=== PATIENT | male | born 1965 | race African-American/Black ===

== ENCOUNTER 2016-06-19 09:50 | Emergency (ER) | payer OTHER ==
[2016-06-19 10:01] VITALS: BMI 38.2
[2016-06-19] MEDS ORDERED: IBUPROFEN 400 MG TABLET (FP) PO ONE (10:19)
[2016-06-19] MEDS ORDERED: IBUPROFEN 400 MG TABLET (FP) PO PRN (10:19)
[2016-06-19] MEDS ORDERED: ALBUTEROL SO4 2.5/IPRATROPIUM 0.5 INH SOL 3 ML VIAL.NEB. NEB ONE ×2 (10:29→10:30)
--- NOTE | 2016-06-19 10:29 | PDOC ---
History of Present Illness - General Chief Complaint: Respiratory Stated Complaint: COUGH Time Seen by Provider: 06/19/16 09:53 - History of Present Illness Initial Comments: 06/19/16 10:29 This is a 50-year-old male with a history of vertigo, chronic back problems, bipolar disorder, mild intermittent asthma who presents emergency department with chest tightness and a dry cough. Patient symptoms have been present for the past 3 days. He was noted by his yesterday to be febrile despite DayQuil and NyQuil. No recent travel clerk was his ill contact PMH: Asthma, Veritgo, Chronic back problems PSH: denies Meds: Albuterol, Fluoxetine, Seroquel ALL: PCN --> anaphylaxis Social: (+) tobacco use (3 cigarettes/day, discontinued over the past 3 days) GENERAL/CONSTITUTIONAL: Yes: fever, chills, weakness, loss of appetite. HEAD, EYES, EARS, NOSE AND THROAT: No: change in vision, ear pain, discharge, sore throat, throat swelling. CARDIOVASCULAR: No: chest pain, lightheadedness, palpitations, syncope RESPIRATORY: Yes: cough, wheezing No: shortness of breath, hemoptysis, stridor. GASTROINTESTINAL: No: nausea, vomiting, diarrhea, abdominal cramping, rectal bleeding, constipation. GENITOURINARY: No: dysuria, hematuria, frequency, urgency, flank pain. MUSCULOSKELETAL: No: back pain, neck pain, joint pain, muscle swelling or pain SKIN: No: lesions, pallor, rash or easy bruising. NEUROLOGIC: No: headache, vertigo, paresthesias, weakness ENDOCRINE: No: unexplained weight gain or loss HEMATOLOGIC/LYMPHATIC: No: anemia, easy bleeding, swelling nodes. GENERAL: The patient is in no acute distress. HEAD: Normal with no signs of trauma. EYES: PERRLA, EOMI, sclera anicteric, conjunctiva clear. ENT: Ears normal, nares patent, oropharynx clear without exudates. Moist mucous membranes. NECK: Normal range of motion, supple without lymphadenopathy, JVD, or masses. LUNGS: (+) wheezing anteriorly, otherwise Breath sounds equal, no stridor HEART:Regular rate and rhythm, normal S1 and S2 without murmur, rub or gallop. ABDOMEN: Soft, nontender, normoactive bowel sounds. No guarding, no rebound. No masses palpable. EXTREMITIES: Normal range of motion, no edema. No clubbing or cyanosis. No erythema, or tenderness. NEUROLOGICAL: Cranial nerves II through XII grossly intact. Normal speech. No focal neurological deficits. MUSCULOSKELETAL: Back non-tender to palpation, no CVA tenderness SKIN: Warm, Dry, normal turgor, no rashes or lesions noted. Past History - Past Medical History Allergies/Adverse Reactions: Allergies Allergy/AdvReac Type Severity Reaction Status Date / Time Penicillins Allergy Verified 02/20/15 20:53 Home Medications: Ambulatory Orders Albuterol 0.083% Nebulizer Alida [Ventolin 0.083% Nebulizer Soln -] 1 neb NEB Q6H PRN #30 vial 06/19/16 Albuterol 0.083% Nebulizer Alida [Ventolin 0.083%] 1 neb NEB QID PRN 06/19/16 Azithromycin [Zithromax 250mg Tablets -] 250 mg PO UTDICT #6 tab 06/19/16 Fluoxetine HCl 20 mg PO DAILY 06/19/16 Meclizine HCl 25 mg PO BID PRN #30 tab.chew 06/19/16 Quetiapine Fumarate [Seroquel -] 50 mg PO AM 06/19/16 Quetiapine Fumarate [Seroquel -] 150 mg PO HS 06/19/16 Asthma: Yes Psychiatric Problems: Yes (BIPOLAR, DEPRESSION, ANXIETY) Suicide Attempt (Hx): Yes (X 1 - 20 YRS. AGO) Seizures: No - Psycho/Social/Smoking Cessation Hx Anxiety: No Suicidal Ideation: No Smoking History: Former smoker Have you smoked in the past 12 months: Yes Number of Cigarettes Smoked Daily: 5 Information on smoking cessation initiated: Yes 'Breaking Loose' booklet given: 06/19/16 Hx Alcohol Use: No Substance Use Type: Cocaine Hx Substance Use Treatment: Yes *Physical Exam - Vital Signs Last Vital Signs Temp Pulse Resp BP Pulse Ox 102.2 F H 80 16 126/84 96 06/19/16 09:50 06/19/16 09:50 06/19/16 09:50 06/19/16 09:50 06/19/16 09:50 ED Treatment Course - LABORATORY CBC & Chemistry Diagram: 06/19/16 10:40 06/19/16 10:40 Medical Decision Making - Medical Decision Making 06/19/16 10:33 Pt febrile and has a cough SIRS criteria = 1 Will do labs, blood cultures Will do CXR Will give nebs Will do Levaquin or Azithromycin pending results Will do flu swab 06/19/16 10:33 06/19/16 13:26 Laboratory Tests 06/19/16 06/19/16 10:40 10:40 WBC 9.0 Hgb 16.5 Hct 50.6 H Plt Count 259 Neutrophils % 70.9 Lymphocytes % 16.8 Sodium 134 L Potassium 3.7 Chloride 98 Carbon Dioxide 28 BUN 13 Creatinine 1.4 H Random Glucose 106 AST 63 H ALT 71 H Influenza negative Pt states he feels a bit better (after getting NS and Antipyretics) Pt LFTs elevated Unclear if this is due to his use of Percocet + DayQuil and NyQuil 06/19/16 13:26 Call placed to lab Tylenol level < 10 Will discharge to home Follow up withe PMD within 2-3 days Will discharge on Azithromycin (no leukocytosis, no infiltrate on CXR), possible bronchitis Clinical Impression: Cough, fevers 06/19/16 13:29 06/19/16 13:29 06/19/16 13:29 *DC/Admit/Observation/Transfer Diagnosis at time of Disposition: Cough, Transaminitis - Discharge Dispostion Disposition: HOME Condition at time of disposition: Stable Admit: No - Prescriptions Prescriptions: Meclizine HCl 25 mg PO BID PRN #30 tab.chew PRN Reason: Vertigo Albuterol 0.083% Nebulizer Alida [Ventolin 0.083% Nebulizer Soln -] 1 neb NEB Q6H PRN #30 vial PRN Reason: Wheezing Azithromycin [Zithromax 250mg Tablets -] 250 mg PO UTDICT #6 tab - Referrals Referrals: Ziggy Goff MD [Primary Care Provider] - - Patient Instructions Printed Discharge Instructions: DI for Acute Bronchitis Additional Instructions: Kathy Thank you for coming in to the ER today Please review your results Please follow up with your Primary Care physician Please review your results from today with Dr Goff Return to the ER for persistent or worsening fevers, chills, cough
[2016-06-19 11:09] LABS: BASOPHIL 2.6 % (0-2.0); EOSINOPHIL 0.9 % (0-4.5); MCH 30.1 pg (25.7-33.7); MCHC 32.5 g/dl (32.0-35.9); MEAN CELL VOLUME 92.7 fl (80-96); MEAN PLT VOLUME 7.8 fl (7.5-11.1); NEUTROPHILS 70.9 % (42.8-82.8); PLATELET COUNT 259 K/MM3 (134-434); RDW 13.5 % (11.9-15.9)
[2016-06-19 11:16] LABS: ALBUMIN 4.1 g/dl (3.5-5.0); BILIRUBIN,TOTAL 0.7 mg/dl (0.2-1.0); CALCIUM 9.2 mg/dl (8.4-10.2); CREATININE 1.4 mg/dl (0.6-1.3); TOT PROT 8.7 g/dl (6.4-8.3)
[2016-06-19] MEDS ORDERED: SODIUM CHLORIDE 1,000 ML IV ONE ×2 (11:39→13:38)
[2016-06-19 13:47] VITALS: BP 121/58; PULSE 89; TEMP 98.2
== END 2016-06-19 13:40 | disposition home or self-care (01) ==
LOC: FER 09:50
PROC: 3E0337Z Introduction of Electrolytic and Water Balance Substance into Peripheral Vein, Percutaneous Approach (ICD-10-PCS; principal; 2016-06-19)
PROC: 3E0F7GC Introduction of Other Therapeutic Substance into Respiratory Tract, Via Natural or Artificial Opening (ICD-10-PCS; 2016-06-19)
DX: J20.9 Acute bronchitis, unspecified (principal); R74.0 Nonspecific elevation of levels of transaminase and lactic acid dehydrogenase [LDH]; J45.21 Mild intermittent asthma with (acute) exacerbation; F31.9 Bipolar disorder, unspecified
CPT/HCPCS: 36415; 71020-TC; 80053; 80307; 85025; 87040; 87804; 94640; 96360; 96361; 99284-25

== ENCOUNTER 2020-02-26 14:11 | Inpatient (IN) | payer OTHER ==
--- NOTE | 2020-02-26 14:24 | BHS.RME ---
Substance Use & Tx History - Substance Use History Alcohol Substance amount: one pint to 1/5 tequilla, 2 beers Frequency of use: More than 3 times per week Substance route: Oral Cocaine-Crack Substance amount: 1/8 gram Frequency of use: Daily Substance route: Smoking Date of Last Use: 02/25/20 Nicotine Substance amount: 5 cigs to one half pack Frequency of use: Daily Substance route: Smoking Date of Last Use: 02/26/20 Marijuana/Hashish Substance amount: one bag Frequency of use: Less than 3 times per week Substance route: Smoking Date of Last Use: 02/25/20 - Last Treatment Date of last treatment: many years ago at [facility] Physical/Psych/Mental Status - Behavior General Behavior: Increased activity (restlessness, agitation) Eye Contact: Normal - Cooperativeness Cooperativeness: Cooperative - Thinking Thought Processes: Tight Thought content: Future oriented - Physical Health Problems Is patient presently having any pain?: Yes (chronic left shoulder, low back pain) Does patient presently have any injuries (include location): No Does patient currently have a fever: No CIWA Nausea/Vomitin-No Nausea/No Vomiting Muscle Tremors: None Anxiety: 0-No Anxiety, at Ease Agitation: 0-Normal Activity Paroxysmal Sweats: 3 Orientation: 0-Oriented Tacttile Disturbances: 0-None Auditory Disturbances: 0-None Visual Disturbances: 0-None Headache: 0-None Present CIWA-Ar Total Score: 3
[2020-02-26 14:47] VITALS: BMI 36.8
--- NOTE | 2020-02-26 17:11 | HP ---
CIWA Score Nausea/Vomitin-No Nausea/No Vomiting Muscle Tremors: None Anxiety: 0-No Anxiety, at Ease Agitation: 4-Moderately Restless (irritable due to not taking psych meds) Paroxysmal Sweats: 3 Orientation: 0-Oriented Tacttile Disturbances: 0-None Auditory Disturbances: 0-None Visual Disturbances: 0-None Headache: 0-None Present CIWA-Ar Total Score: 7 - Admission Criteria OASAS Guidelines: Admission for Medically Managed Detox: Requires at least one of the followin. CIWA greater than 12 2. Seizures within the past 24 hours 3. Delirium tremens within the past 24 hours 4. Hallucinations within the past 24 hours 5. Acute intervention needed for co occurring medical disorder 6. Acute intervention needed for co occurring psychiatric disorder 7. Severe withdrawal that cannot be handled at a lower level of care (continued vomiting, continued diarrhea, abnormal vital signs) requiring intravenous medication and/or fluids 8. Admitting History and Physical - Smoking History Smoking history: Former smoker Have you smoked in the past 12 months: Yes Aproximately how many cigarettes per day: 5 - Alcohol/Substance Use Hx Alcohol Use: No Admission ROS [facility] Chief Complaint: here for alcohol, cocaine and cannabis txment Allergies/Adverse Reactions: Allergies Allergy/AdvReac Type Severity Reaction Status Date / Time Penicillins Allergy Verified 02/20/15 20:53 History of Present Illness: 54 Y.O. AA MALE HERE FOR SUBSTANCE ABUSE DISORDER. CLIENT REPORTS ALCOHOL, COCAINE AND CANNABIS DEPENDENCE. HE REPORTS DRINKING 1 PINT QOD. LAST DRINK WAS YESTERDAY . "I DRANK ALL DAY UNTIL 4 AM THIS MORNING". HE REPORTS YESTERDAY BEING THE FIRST DAY HE HAS DRANK ALCOHOL IN THE PAST MONTH. DENIES NEEDING A DRINK FIRST THING IN THE MORNING. DENIES HX/O BLACK OUTS, SEIZURES. CLIENT STATES HE DOES NOT EXPERIENCE WITHDRAWAL SX'S IN THE ABSENCE F ALCOHOL. REPORTS MOST RECENT CLEAN TIME 1 MONTH RELAPSING YESTERDAY. LIVES W/ , UNEMPLOYED, DUI. SARC COVID NEGATIVE 02/26/2020 Exam Limitations: No Limitations - Ebola screening Have you traveled outside of the country in the last 21 days: No Have you had contact with anyone from an Ebola affected area: No Have you been sick,other than usual withdrawal symptoms: No Do you have a fever: No - Review of Systems Constitutional: Changes in sleep (INSOMNIA) EENT: reports: Dental Problems (MISSING MAJORITY OF TEETH), Other Respiratory: reports: Shortness of Breath (2/2 ASTHMA) Cardiac: reports: No Symptoms Reported GI: reports: No Symptoms Reported : reports: No Symptoms Reported Musculoskeletal: reports: Back Pain (CHRONIC), Joint Pain (LEFT SHOULDER- CHRONIC) Integumentary: reports: No Symptoms Reported Neuro: reports: No Symptoms reported Endocrine: reports: Other (HX/O DM, HYPOTHYROIDISM) Hematology: reports: No Symptoms Reported Psychiatric: reports: Orientated x3, Agitated, Anxious Other Systems: Reviewed and Negative Patient History - Patient Medical History Hx Anemia: No Hx Asthma: Yes Hx Chronic Obstructive Pulmonary Disease (COPD): No Hx Cancer: No Hx Cardiac Disorders: No Hx Congestive Heart Failure: No Hx Hypertension: No Hx Hypercholesterolemia: Yes Hx Pacemaker: No HX Cerebrovascular Accident: No Hx Seizures: No Hx Dementia: No Hx Diabetes: Yes Hx Gastrointestinal Disorders: Yes (GERD) Hx Liver Disease: No Hx Genitourinary Disorders: No Hx Sexually Transmitted Disorders: Yes (GONORRHEA AT 15 Y.O.) Hx Renal Disease (ESRD): No Hx Thyroid Disease: Yes (HYPOTHYROIDISM) Hx Human Immunodeficiency Virus (HIV): No Hx Hepatitis C: No Hx Depression: Yes Hx Suicide Attempt: Yes (ATTEMPTED ONCE VIA PILL OVERDOSE OVER 15 YEARS AGO) Hx Bipolar Disorder: Yes Hx Schizophrenia: No Other Medical History: DENIES - Patient Surgical History Past Surgical History: Yes Hx Neurologic Surgery: No Hx Cataract Extraction: No Hx Cardiac Surgery: No Hx Lung Surgery: No Hx Breast Surgery: No Hx Breast Biopsy: No Hx Abdominal Surgery: No Hx Appendectomy: No Hx Cholecystectomy: No Hx Genitourinary Surgery: No Hx Section: No Hx Orthopedic Surgery: No Other Surgical History: left shoulder surgery/ 2018 Anesthesia Reaction: Yes - PPD History Previous Implant?: Yes Documented Results: Negative w/o proof Implanted On Prior R Admission?: No PPD to be Administered?: Yes - Reproductive History Patient : No - Smoking Cessation Smoking history: Current every day smoker Have you smoked in the past 12 months: Yes Aproximately how many cigarettes per day: 5 Cigars Per Day: 0 Hx Chewing Tobacco Use: No Initiated information on smoking cessation: No - Substance & Tx. History Hx Alcohol Use: Yes Hx Substance Use: Yes Substance Use Type: Alcohol, Cocaine, Marijuana Hx Substance Use Treatment: Yes ([facility]) - Substances abused Alcohol Other (specify): LIQUOR/ BEER Substance route: Oral Frequency: 1-3 times last 30 days (ONCE) Amount used: 1 PINT/ 2 CANS Age of first use: 11 Date of last use: 02/25/20 Cocaine Substance route: Smoking Frequency: 1-3 times last 30 days (ONCE) Amount used: 8 BALL Age of first use: 14 Date of last use: 02/26/20 Marijuana/Hashish Substance route: Smoking Frequency: 1-3 times last 30 days (2X) Amount used: JUSTIN Age of first use: 7 Date of last use: 02/25/20 Admission Physical Exam S - Vital Signs Vital Signs: Vital Signs - 24 hr 02/26/20 14:42 Temperature 96.2 F L Pulse Rate 66 Respiratory 12 Rate Blood Pressure 119/75 - Physical General Appearance: Yes: No Apparent Distress, Appropriately Dressed HEENTM: Yes: EOMI, Normocephalic, Normal Voice, TONIA, Pharynx Normal, Other (POOR DENTITION MISSING TEETH) Respiratory: Yes: Chest Non-Tender, Lungs Clear, Normal Breath Sounds, No Respiratory Distress, No Accessory Muscle Use Neck: Yes: No masses,lesions,Nodules, Supple, Trachea in good position Breast: Yes: Breasts Symetrical Cardiology: Yes: Regular Rhythm, Regular Rate, S1, S2 Abdominal: Yes: Normal Bowel Sounds, Non Tender, Soft, Protuberent Genitourinary: Yes: Within Normal Limits Back: Yes: Normal Inspection, Decreased Range of Motion (DUE TO PAIN) Musculoskeletal: Yes: full range of Motion, Gait Steady, Back pain Extremities: Yes: Normal Capillary Refill, Normal Range of Motion, Non-Tender Neurological: Yes: Fully Oriented, Alert, Motor Strength 5/5 Integumentary: Yes: Within Normal Limits Lymphatic: Yes: Within Normal Limits - Diagnostic (1) Alcohol dependence, uncomplicated Current Visit: Yes Status: Chronic (2) Cannabis dependence, uncomplicated Current Visit: Yes Status: Chronic (3) Cocaine dependence, uncomplicated Current Visit: Yes Status: Chronic (4) Hypothyroidism Current Visit: Yes Status: Chronic (5) Diabetes Current Visit: Yes Status: Chronic Qualifiers: Diabetes mellitus type: type 2 (6) GERD (gastroesophageal reflux disease) Current Visit: Yes Status: Chronic Qualifiers: Esophagitis presence: with esophagitis Qualified Code(s): K21.0 - Gastro- esophageal reflux disease with esophagitis (7) Asthma Current Visit: Yes Status: Chronic Qualifiers: Asthma severity: mild Asthma persistence: intermittent Asthma complication type: uncomplicated Qualified Code(s): J45.20 - Mild intermittent asthma, uncomplicated (8) Bipolar disorder Current Visit: Yes Status: Chronic (9) Mood disorder Current Visit: Yes Status: Chronic Cleared for Admission [facility] - Detox or Rehab Claeared for Rehab Admission: No Breathalyzer - Breathalyzer Breathalyzer: 0 Urine Drug Screen - Test Device Lot number: [id number] Expiration date: 09/03/21 - Results Drug screen NEGATIVE: No Urine drug screen results: THC-Marijuana, RITA-Cocaine Inpatient Rehab Admission - Rehab Decision to Admit Inpatient rehab admission?: Yes - Initial Determination Are CD services needed?: Yes Free of communicable disease: Yes Not in need of hospitalization: Yes - Rehab Admission Criteria Previous failed treatment: Yes Poor recovery environment: Yes Comorbidities: Yes Lacks judgement: No Patient is meeting Inpatient Rehab admission criteria:: Yes
[2020-02-26] MEDS ORDERED: guaiFENesin 200 MG/10 ML 10 ML UNIT-DOSE CUPS PO PRN (17:23)
[2020-02-26] MEDS ORDERED: NICOTINE POLACRILEX 2 MG GUM BC PRN (17:23)
[2020-02-26] MEDS ORDERED: IBUPROFEN 400 MG TABLET (FP) PO PRN (17:23)
[2020-02-26] MEDS ORDERED: MAGNESIUM CITRATE 300 ML BOTTLE PO PRN (17:23)
[2020-02-26] MEDS ORDERED: P-EPHED 60MG/TRIPROLIDI 2.5MG TABLET PO PRN (17:23)
[2020-02-26] MEDS ORDERED: MAGNESIUM HYDROX 2400MG/30ML ORAL SUSPENSION 30 ML CUP PO PRN (17:23)
[2020-02-26] MEDS ORDERED: LOPERAMIDE HCL 2 MG CAPSULE PO PRN (17:23)
[2020-02-26] MEDS ORDERED: ACETAMINOPHEN 325 MG TABLET (FP) PO PRN (17:23)
[2020-02-26] MEDS ORDERED: TUBERCULIN PPD 5 TU/0.1ML VIAL ID ONE (18:44)
[2020-02-26] MEDS: hydrOXYzine PAMOATE 25 MG CAPSULE (FP) PO PRN (18:46)
[2020-02-26] MEDS: metFORMIN HCL 500 MG TABLET (FP) PO SCH (21:32)
[2020-02-26] MEDS: MELATONIN 5 MG TABLETS PO SCH (21:33)
[2020-02-26] MEDS: THIAMINE HCL 100 MG TABLET (FP) PO SCH (21:33)
[2020-02-26] MEDS ORDERED: metFORMIN HCL 500 MG TABLET (FP) PO SCH (22:00)
[2020-02-27] MEDS: metFORMIN HCL 500 MG TABLET (FP) PO SCH ×2 (07:02→21:18)
--- NOTE | 2020-02-27 09:55 | EKG ---
Test Reason : Blood Pressure : / mmHG Vent. Rate : 065 BPM Atrial Rate : 065 BPM P-R Int : 178 ms QRS Dur : 086 ms QT Int : 424 ms P-R-T Axes : 066 -39 040 degrees QTc Int : 440 ms NORMAL SINUS RHYTHM LEFT AXIS DEVIATION MINIMAL VOLTAGE CRITERIA FOR LVH, MAY BE NORMAL VARIANT JUNCTIONAL ST DEPRESSION, PROBABLY NORMAL ABNORMAL ECG NO PREVIOUS ECGS AVAILABLE Confirmed by STACY SILVA, SKYLER ([id number]) on 02/27/2020 9:55:42 AM Referred By: Confirmed By:SKYLER KUMAR MD
[2020-02-27 10:18] LABS: HEMATOCRIT 43.7 % (35.4-49); HEMOGLOBIN 14.8 GM/dL (11.7-16.9); MCH 31.2 pg (25.7-33.7); MCHC 33.9 g/dl (32.0-35.9); MEAN PLT VOLUME 8.2 fl (7.5-11.1); PLATELET COUNT 266 K/MM3 (134-434); RBC 4.75 M/mm3 (4.00-5.60); RDW 13.6 % (11.9-15.9); WHITE BLOOD COUNT 7.5 K/mm3 (4.0-10.0)
[2020-02-27 10:28] LABS: ALBUMIN 3.5 g/dl (3.4-5.0); BILIRUBIN,TOTAL 0.7 mg/dL (0.2-1); BLOOD UREA NITROGEN 15.7 mg/dL (7-18); CALCIUM 8.8 mg/dL (8.5-10.1); TOT PROT 7.9 g/dl (6.4-8.2)
[2020-02-27] MEDS: hydrOXYzine PAMOATE 25 MG CAPSULE (FP) PO PRN (10:31)
[2020-02-27] MEDS: NICOTINE 14 MG/24 HOURS TOPICAL PATCH TD SCH (10:32)
[2020-02-27] MEDS: PRENATAL VITAMINS W/ FOLIC ACID TABLET (FP) PO SCH (10:32)
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
[2020-02-27 11:05] LABS: SICKLE CELL SCREEN NEGATIVE (NEGATIVE)
--- NOTE | 2020-02-27 15:44 | PN ---
[facility] Progress Note Note: Pt is a 54 y/o male admitted to rehab through [facility] yesterday. PMHx:HLD, DM, Hep C, GERD, Hypothyroidism(on med, last taken yesterday per pt Hx) SHx:Sx Left shoulder 2018 Vital Signs - 24 hr 02/26/20 02/26/20 02/26/20 17:43 18:39 19:07 Temperature 96.2 F L 97.7 F Pulse Rate 66 66 Respiratory 12 18 Rate Blood Pressure 119/75 133/75 O2 Sat by Pulse 98 96 Oximetry (%) 02/26/20 02/27/20 22:10 06:56 Temperature Pulse Rate Respiratory Rate Blood Pressure O2 Sat by Pulse 96 96 Oximetry (%) Laboratory Tests 02/26/20 02/26/20 02/26/20 07:00 07:00 07:00 WBC 7.5 RBC 4.75 Hgb 14.8 Hct 43.7 MCV 92.0 MCH 31.2 MCHC 33.9 RDW 13.6 Plt Count 266 MPV 8.2 Sickle Cell Screen Negative Sodium 137 Potassium 4.0 Chloride 102 Carbon Dioxide 28 Anion Gap 7 L BUN 15.7 Creatinine 1.0 Est GFR (CKD-EPI)AfAm 97.08 Est GFR (CKD-EPI)NonAf 83.76 POC Glucometer Random Glucose 129 H Calcium 8.8 Total Bilirubin 0.7 AST 51 H ALT 65 H Alkaline Phosphatase 92 Total Protein 7.9 Albumin 3.5 Syphilis Serology Non-reactive SARS-CoV-2 (PCR) 02/26/20 02/26/20 02/26/20 14:50 18:25 20:26 WBC RBC Hgb Hct MCV MCH MCHC RDW Plt Count MPV Sickle Cell Screen Sodium Potassium Chloride Carbon Dioxide Anion Gap BUN Creatinine Est GFR (CKD-EPI)AfAm Est GFR (CKD-EPI)NonAf POC Glucometer 132 148 Random Glucose Calcium Total Bilirubin AST ALT Alkaline Phosphatase Total Protein Albumin Syphilis Serology SARS-CoV-2 (PCR) Negative 02/27/20 07:01 WBC RBC Hgb Hct MCV MCH MCHC RDW Plt Count MPV Sickle Cell Screen Sodium Potassium Chloride Carbon Dioxide Anion Gap BUN Creatinine Est GFR (CKD-EPI)AfAm Est GFR (CKD-EPI)NonAf POC Glucometer 145 Random Glucose Calcium Total Bilirubin AST ALT Alkaline Phosphatase Total Protein Albumin Syphilis Serology SARS-CoV-2 (PCR) Alert o x 3 nad oob ambulating with steady gait New rehab pt MYRNA Increase po fluids maintain safety D/W pt will order TSH,T4 and T3 And restart synthroid as necessary
[2020-02-27] MEDS: MAG HYDROX/AL HYDROX/SIMETH 30 ML UNIT-DOSE CUP PO PRN (20:12)
[2020-02-27] MEDS: hydrOXYzine PAMOATE 50 MG CAPSULE (FP) PO PRN (21:18)
[2020-02-27] MEDS: THIAMINE HCL 100 MG TABLET (FP) PO SCH (21:18)
[2020-02-27] MEDS: MELATONIN 5 MG TABLETS PO SCH (21:18)
[2020-02-27] MEDS: MIRTAZAPINE 15 MG TABLET (FP) PO SCH (21:47)
[2020-02-28] MEDS: metFORMIN HCL 500 MG TABLET (FP) PO SCH ×2 (07:52→21:16)
[2020-02-28] MEDS: NICOTINE 14 MG/24 HOURS TOPICAL PATCH TD SCH (10:32)
[2020-02-28] MEDS: PRENATAL VITAMINS W/ FOLIC ACID TABLET (FP) PO SCH (10:32)
[2020-02-28] MEDS: PANTOPRAZOLE 40 MG TABLET PO SCH (12:08)
[2020-02-28] MEDS: LEVOTHYROXINE NA 100 MCG TABLET (FP) PO SCH (14:22)
[2020-02-28] MEDS: MAG HYDROX/AL HYDROX/SIMETH 30 ML UNIT-DOSE CUP PO PRN (16:49)
[2020-02-28] MEDS: THIAMINE HCL 100 MG TABLET (FP) PO SCH (21:15)
[2020-02-28] MEDS: MIRTAZAPINE 15 MG TABLET (FP) PO SCH (21:15)
[2020-02-28] MEDS: hydrOXYzine PAMOATE 50 MG CAPSULE (FP) PO PRN (21:15)
[2020-02-28] MEDS: MELATONIN 5 MG TABLETS PO SCH (21:16)
[2020-02-29] MEDS: metFORMIN HCL 500 MG TABLET (FP) PO SCH ×2 (06:59→21:16)
[2020-02-29] MEDS: LEVOTHYROXINE NA 100 MCG TABLET (FP) PO SCH (07:00)
[2020-02-29] MEDS: PRENATAL VITAMINS W/ FOLIC ACID TABLET (FP) PO SCH (09:44)
[2020-02-29] MEDS: NICOTINE 14 MG/24 HOURS TOPICAL PATCH TD SCH (09:44)
[2020-02-29] MEDS: PANTOPRAZOLE 40 MG TABLET PO SCH (09:44)
[2020-02-29] MEDS: hydrOXYzine PAMOATE 50 MG CAPSULE (FP) PO PRN ×2 (09:44→21:16)
[2020-02-29] MEDS: MELATONIN 5 MG TABLETS PO SCH (21:16)
[2020-02-29] MEDS: THIAMINE HCL 100 MG TABLET (FP) PO SCH (21:16)
[2020-02-29] MEDS: MIRTAZAPINE 15 MG TABLET (FP) PO SCH (21:16)
[2020-03-01] MEDS: metFORMIN HCL 500 MG TABLET (FP) PO SCH ×2 (06:26→21:16)
[2020-03-01] MEDS: LEVOTHYROXINE NA 100 MCG TABLET (FP) PO SCH (06:26)
[2020-03-01] MEDS: NICOTINE 14 MG/24 HOURS TOPICAL PATCH TD SCH (09:47)
[2020-03-01] MEDS: PANTOPRAZOLE 40 MG TABLET PO SCH (09:47)
[2020-03-01] MEDS: PRENATAL VITAMINS W/ FOLIC ACID TABLET (FP) PO SCH (09:47)
[2020-03-01] MEDS: hydrOXYzine PAMOATE 50 MG CAPSULE (FP) PO PRN ×2 (09:47→21:16)
[2020-03-01] MEDS: THIAMINE HCL 100 MG TABLET (FP) PO SCH (21:16)
[2020-03-01] MEDS: MIRTAZAPINE 15 MG TABLET (FP) PO SCH (21:16)
[2020-03-01] MEDS: MELATONIN 5 MG TABLETS PO SCH (21:16)
[2020-03-02] MEDS: metFORMIN HCL 500 MG TABLET (FP) PO SCH ×2 (06:54→21:28)
[2020-03-02] MEDS: LEVOTHYROXINE NA 100 MCG TABLET (FP) PO SCH (06:54)
[2020-03-02] MEDS: PANTOPRAZOLE 40 MG TABLET PO SCH (09:30)
[2020-03-02] MEDS: PRENATAL VITAMINS W/ FOLIC ACID TABLET (FP) PO SCH (09:30)
[2020-03-02] MEDS: NICOTINE 14 MG/24 HOURS TOPICAL PATCH TD SCH (09:30)
--- NOTE | 2020-03-02 15:40 | PN ---
S Progress Note Note: pt c/o painful hang nail on left thumb. Vital Signs - 24 hr 03/02/20 03/02/20 06:43 10:00 Temperature 97.7 F Pulse Rate 80 60 Respiratory 18 Rate Blood Pressure 118/70 108/58 L O2 Sat by Pulse 97 Oximetry (%) Laboratory Tests 02/26/20 02/26/20 02/26/20 07:00 07:00 07:00 WBC 7.5 RBC 4.75 Hgb 14.8 Hct 43.7 MCV 92.0 MCH 31.2 MCHC 33.9 RDW 13.6 Plt Count 266 MPV 8.2 Sickle Cell Screen Negative Sodium 137 Potassium 4.0 Chloride 102 Carbon Dioxide 28 Anion Gap 7 L BUN 15.7 Creatinine 1.0 Est GFR (CKD-EPI)AfAm 97.08 Est GFR (CKD-EPI)NonAf 83.76 POC Glucometer Random Glucose 129 H Calcium 8.8 Total Bilirubin 0.7 AST 51 H ALT 65 H Alkaline Phosphatase 92 Total Protein 7.9 Albumin 3.5 TSH Thyroxine (T4) Resin T3 Uptake Syphilis Serology Non-reactive Hepatitis Be Antibody Hepatitis Be Antigen SARS-CoV-2 (PCR) 02/26/20 02/26/20 02/26/20 14:50 18:25 20:26 WBC RBC Hgb Hct MCV MCH MCHC RDW Plt Count MPV Sickle Cell Screen Sodium Potassium Chloride Carbon Dioxide Anion Gap BUN Creatinine Est GFR (CKD-EPI)AfAm Est GFR (CKD-EPI)NonAf POC Glucometer 132 148 Random Glucose Calcium Total Bilirubin AST ALT Alkaline Phosphatase Total Protein Albumin TSH Thyroxine (T4) Resin T3 Uptake Syphilis Serology Hepatitis Be Antibody Hepatitis Be Antigen SARS-CoV-2 (PCR) Negative 02/27/20 02/27/20 02/27/20 07:00 07:01 16:38 WBC RBC Hgb Hct MCV MCH MCHC RDW Plt Count MPV Sickle Cell Screen Sodium Potassium Chloride Carbon Dioxide Anion Gap BUN Creatinine Est GFR (CKD-EPI)AfAm Est GFR (CKD-EPI)NonAf POC Glucometer 145 157 Random Glucose Calcium Total Bilirubin AST ALT Alkaline Phosphatase Total Protein Albumin TSH Thyroxine (T4) Resin T3 Uptake Syphilis Serology Hepatitis Be Antibody Positive H Hepatitis Be Antigen Negative SARS-CoV-2 (PCR) 02/28/20 02/28/20 02/28/20 07:38 11:50 16:47 WBC RBC Hgb Hct MCV MCH MCHC RDW Plt Count MPV Sickle Cell Screen Sodium Potassium Chloride Carbon Dioxide Anion Gap BUN Creatinine Est GFR (CKD-EPI)AfAm Est GFR (CKD-EPI)NonAf POC Glucometer 123 120 Random Glucose Calcium Total Bilirubin AST ALT Alkaline Phosphatase Total Protein Albumin TSH 1.25 Thyroxine (T4) 10.7 Resin T3 Uptake 32.6 L Syphilis Serology Hepatitis Be Antibody Hepatitis Be Antigen SARS-CoV-2 (PCR) 02/29/20 02/29/20 03/01/20 06:58 17:00 06:25 WBC RBC Hgb Hct MCV MCH MCHC RDW Plt Count MPV Sickle Cell Screen Sodium Potassium Chloride Carbon Dioxide Anion Gap BUN Creatinine Est GFR (CKD-EPI)AfAm Est GFR (CKD-EPI)NonAf POC Glucometer 113 130 138 Random Glucose Calcium Total Bilirubin AST ALT Alkaline Phosphatase Total Protein Albumin TSH Thyroxine (T4) Resin T3 Uptake Syphilis Serology Hepatitis Be Antibody Hepatitis Be Antigen SARS-CoV-2 (PCR) 03/01/20 03/02/20 21:15 06:53 WBC RBC Hgb Hct MCV MCH MCHC RDW Plt Count MPV Sickle Cell Screen Sodium Potassium Chloride Carbon Dioxide Anion Gap BUN Creatinine Est GFR (CKD-EPI)AfAm Est GFR (CKD-EPI)NonAf POC Glucometer 169 124 Random Glucose Calcium Total Bilirubin AST ALT Alkaline Phosphatase Total Protein Albumin TSH Thyroxine (T4) Resin T3 Uptake Syphilis Serology Hepatitis Be Antibody Hepatitis Be Antigen SARS-CoV-2 (PCR) Alert o x 3 nad oob ambulating with steady gait Skin:left thumb cuticle slightly red, no swelling. Hang nail Bacitracin ointment as directed warm water soak before bacitracin ointment.
[2020-03-02] MEDS: BACITRACIN 0.9 GM PACKET TP SCH (21:27)
[2020-03-02] MEDS: hydrOXYzine PAMOATE 50 MG CAPSULE (FP) PO PRN (21:28)
[2020-03-02] MEDS: MELATONIN 5 MG TABLETS PO SCH (21:28)
[2020-03-02] MEDS: THIAMINE HCL 100 MG TABLET (FP) PO SCH (21:28)
[2020-03-02] MEDS: MIRTAZAPINE 15 MG TABLET (FP) PO SCH (21:28)
[2020-03-02 23:34] LABS: PH,URINE 5.5 (5.0-8.0); URINE APPEARANCE Clear; URINE BILIRUBIN Negative (NEGATIVE); URINE COLOR Yellow; URINE GLUCOSE (UA) Negative (NEGATIVE); URINE KETONE Negative (NEGATIVE); URINE LEUK ESTERASE Negative (NEGATIVE); URINE NITRITE Negative (NEGATIVE); URINE PROTEIN Negative (NEGATIVE); URINE UROBILINOGEN 0.2 mg/dL (0.2-1.0)
[2020-03-02] MEDS: NYSTATIN 100,000 UNIT/GM TOPICAL CREAM 15 GM TUBE TP SCH (23:47)
[2020-03-03] MEDS: metFORMIN HCL 500 MG TABLET (FP) PO SCH ×2 (06:36→21:24)
[2020-03-03] MEDS: LEVOTHYROXINE NA 100 MCG TABLET (FP) PO SCH (06:36)
[2020-03-03] MEDS: PANTOPRAZOLE 40 MG TABLET PO SCH (10:27)
[2020-03-03] MEDS: NYSTATIN 100,000 UNIT/GM TOPICAL CREAM 15 GM TUBE TP SCH ×2 (10:28→21:25)
[2020-03-03] MEDS: BACITRACIN 0.9 GM PACKET TP SCH ×2 (10:28→21:24)
[2020-03-03] MEDS: NICOTINE 14 MG/24 HOURS TOPICAL PATCH TD SCH (10:28)
[2020-03-03] MEDS: PRENATAL VITAMINS W/ FOLIC ACID TABLET (FP) PO SCH (10:28)
[2020-03-03] MEDS: hydrOXYzine PAMOATE 50 MG CAPSULE (FP) PO PRN (21:24)
[2020-03-03] MEDS: MELATONIN 5 MG TABLETS PO SCH (21:24)
[2020-03-03] MEDS: MIRTAZAPINE 15 MG TABLET (FP) PO SCH (21:24)
[2020-03-03] MEDS: THIAMINE HCL 100 MG TABLET (FP) PO SCH (21:25)
[2020-03-04] MEDS: LEVOTHYROXINE NA 100 MCG TABLET (FP) PO SCH (06:34)
[2020-03-04] MEDS: metFORMIN HCL 500 MG TABLET (FP) PO SCH ×2 (06:34→21:27)
[2020-03-04] MEDS: NYSTATIN 100,000 UNIT/GM TOPICAL CREAM 15 GM TUBE TP SCH ×2 (10:06→21:28)
[2020-03-04] MEDS: BACITRACIN 0.9 GM PACKET TP SCH ×2 (10:06→21:27)
[2020-03-04] MEDS: NICOTINE 14 MG/24 HOURS TOPICAL PATCH TD SCH (10:06)
[2020-03-04] MEDS: PRENATAL VITAMINS W/ FOLIC ACID TABLET (FP) PO SCH (10:06)
[2020-03-04] MEDS: PANTOPRAZOLE 40 MG TABLET PO SCH (10:07)
[2020-03-04] MEDS: hydrOXYzine PAMOATE 50 MG CAPSULE (FP) PO PRN ×2 (10:07→21:27)
--- NOTE | 2020-03-04 14:53 | PN ---
S Progress Note Note: Patient is scheduled for discharged on 03/06/20. Scripts for 30 days supply will be electronically transmitted to [facility], [address] [place], [place] [id number]
[2020-03-04] MEDS: THIAMINE HCL 100 MG TABLET (FP) PO SCH (21:27)
[2020-03-04] MEDS: MIRTAZAPINE 15 MG TABLET (FP) PO SCH (21:27)
[2020-03-04] MEDS: MELATONIN 5 MG TABLETS PO SCH (21:28)
[2020-03-05 07:58] VITALS: TEMP 97.5
[2020-03-05] MEDS: metFORMIN HCL 500 MG TABLET (FP) PO SCH ×2 (08:38→21:09)
[2020-03-05] MEDS: LEVOTHYROXINE NA 100 MCG TABLET (FP) PO SCH (08:38)
[2020-03-05] MEDS: BACITRACIN 0.9 GM PACKET TP SCH ×2 (10:25→21:10)
[2020-03-05] MEDS: NICOTINE 14 MG/24 HOURS TOPICAL PATCH TD SCH (10:25)
[2020-03-05] MEDS: PANTOPRAZOLE 40 MG TABLET PO SCH (10:26)
[2020-03-05] MEDS: PRENATAL VITAMINS W/ FOLIC ACID TABLET (FP) PO SCH (10:26)
[2020-03-05] MEDS: NYSTATIN 100,000 UNIT/GM TOPICAL CREAM 15 GM TUBE TP SCH ×2 (10:56→21:09)
[2020-03-05] MEDS: MELATONIN 5 MG TABLETS PO SCH (21:09)
[2020-03-05] MEDS: hydrOXYzine PAMOATE 50 MG CAPSULE (FP) PO PRN (21:09)
[2020-03-05] MEDS: MIRTAZAPINE 15 MG TABLET (FP) PO SCH (21:09)
[2020-03-05] MEDS: THIAMINE HCL 100 MG TABLET (FP) PO SCH (21:10)
[2020-03-06] MEDS: metFORMIN HCL 500 MG TABLET (FP) PO SCH (06:33)
[2020-03-06] MEDS: LEVOTHYROXINE NA 100 MCG TABLET (FP) PO SCH (06:33)
[2020-03-06 06:54] VITALS: BP 123/73; PULSE 57
[2020-03-06] MEDS: BACITRACIN 0.9 GM PACKET TP SCH (09:18)
[2020-03-06] MEDS: PRENATAL VITAMINS W/ FOLIC ACID TABLET (FP) PO SCH (09:18)
[2020-03-06] MEDS: NICOTINE 14 MG/24 HOURS TOPICAL PATCH TD SCH (09:19)
[2020-03-06] MEDS: PANTOPRAZOLE 40 MG TABLET PO SCH (09:20)
[2020-03-06] MEDS: NYSTATIN 100,000 UNIT/GM TOPICAL CREAM 15 GM TUBE TP SCH (09:21)
--- NOTE | 2020-03-06 10:12 | DS ---
[facility] Rehab Discharge Summary - [facility] Rehab Discharge Summary Admission Date: 02/26/20 Discharge Date: 03/06/20 - History Present History: Alcohol dependence, Cannabis dependence, Cocaine dependence Pertinent Past History: Asthma GERD HLD Hypothyroidism Obesity Bipolar Disorder - Discharge Physical Exam Vital Signs: Vital Signs Temperature 97.5 F L 03/06/20 06:13 Pulse Rate 57 L 03/06/20 06:13 Respiratory Rate 18 03/06/20 06:13 Blood Pressure 123/73 03/06/20 06:13 O2 Sat by Pulse Oximetry (%) 97 03/06/20 06:13 General;WDWN obese male, Alert o x 3, nad Cardiac:s1 s2,rrr lungs:ctab abdomen:soft, +++fatty abdomen, +bs,nt,nd MSK/Skin:Active FROM, all limbs; oob ambulating with steady gait; no edema, skin intact. Pertinent Admission Physical Exam Findings: Laboratory Tests 02/26/20 02/26/20 02/26/20 07:00 07:00 07:00 WBC 7.5 RBC 4.75 Hgb 14.8 Hct 43.7 MCV 92.0 MCH 31.2 MCHC 33.9 RDW 13.6 Plt Count 266 MPV 8.2 Sickle Cell Screen Negative Sodium 137 Potassium 4.0 Chloride 102 Carbon Dioxide 28 Anion Gap 7 L BUN 15.7 Creatinine 1.0 Est GFR (CKD-EPI)AfAm 97.08 Est GFR (CKD-EPI)NonAf 83.76 POC Glucometer Random Glucose 129 H Calcium 8.8 Total Bilirubin 0.7 AST 51 H ALT 65 H Alkaline Phosphatase 92 Total Protein 7.9 Albumin 3.5 TSH Thyroxine (T4) Resin T3 Uptake Urine Color Urine Appearance Urine pH Ur Specific [place] Urine Protein Urine Glucose (UA) Urine Ketones Urine Blood Urine Nitrite Urine Bilirubin Urine Urobilinogen Ur Leukocyte Esterase Syphilis Serology Non-reactive Hepatitis Be Antibody Hepatitis Be Antigen HIV Ag/Ab Combo Qual SARS-CoV-2 (PCR) 02/26/20 02/26/20 02/26/20 14:50 18:25 20:26 WBC RBC Hgb Hct MCV MCH MCHC RDW Plt Count MPV Sickle Cell Screen Sodium Potassium Chloride Carbon Dioxide Anion Gap BUN Creatinine Est GFR (CKD-EPI)AfAm Est GFR (CKD-EPI)NonAf POC Glucometer 132 148 Random Glucose Calcium Total Bilirubin AST ALT Alkaline Phosphatase Total Protein Albumin TSH Thyroxine (T4) Resin T3 Uptake Urine Color Urine Appearance Urine pH Ur Specific [place] Urine Protein Urine Glucose (UA) Urine Ketones Urine Blood Urine Nitrite Urine Bilirubin Urine Urobilinogen Ur Leukocyte Esterase Syphilis Serology Hepatitis Be Antibody Hepatitis Be Antigen HIV Ag/Ab Combo Qual SARS-CoV-2 (PCR) Negative 02/27/20 02/27/20 02/27/20 07:00 07:01 16:38 WBC RBC Hgb Hct MCV MCH MCHC RDW Plt Count MPV Sickle Cell Screen Sodium Potassium Chloride Carbon Dioxide Anion Gap BUN Creatinine Est GFR (CKD-EPI)AfAm Est GFR (CKD-EPI)NonAf POC Glucometer 145 157 Random Glucose Calcium Total Bilirubin AST ALT Alkaline Phosphatase Total Protein Albumin TSH Thyroxine (T4) Resin T3 Uptake Urine Color Urine Appearance Urine pH Ur Specific [place] Urine Protein Urine Glucose (UA) Urine Ketones Urine Blood Urine Nitrite Urine Bilirubin Urine Urobilinogen Ur Leukocyte Esterase Syphilis Serology Hepatitis Be Antibody Positive H Hepatitis Be Antigen Negative HIV Ag/Ab Combo Qual SARS-CoV-2 (PCR) 02/28/20 02/28/20 02/28/20 07:38 11:50 16:47 WBC RBC Hgb Hct MCV MCH MCHC RDW Plt Count MPV Sickle Cell Screen Sodium Potassium Chloride Carbon Dioxide Anion Gap BUN Creatinine Est GFR (CKD-EPI)AfAm Est GFR (CKD-EPI)NonAf POC Glucometer 123 120 Random Glucose Calcium Total Bilirubin AST ALT Alkaline Phosphatase Total Protein Albumin TSH 1.25 Thyroxine (T4) 10.7 Resin T3 Uptake 32.6 L Urine Color Urine Appearance Urine pH Ur Specific [place] Urine Protein Urine Glucose (UA) Urine Ketones Urine Blood Urine Nitrite Urine Bilirubin Urine Urobilinogen Ur Leukocyte Esterase Syphilis Serology Hepatitis Be Antibody Hepatitis Be Antigen HIV Ag/Ab Combo Qual SARS-CoV-2 (PCR) 02/29/20 02/29/20 03/01/20 06:58 17:00 06:25 WBC RBC Hgb Hct MCV MCH MCHC RDW Plt Count MPV Sickle Cell Screen Sodium Potassium Chloride Carbon Dioxide Anion Gap BUN Creatinine Est GFR (CKD-EPI)AfAm Est GFR (CKD-EPI)NonAf POC Glucometer 113 130 138 Random Glucose Calcium Total Bilirubin AST ALT Alkaline Phosphatase Total Protein Albumin TSH Thyroxine (T4) Resin T3 Uptake Urine Color Urine Appearance Urine pH Ur Specific [place] Urine Protein Urine Glucose (UA) Urine Ketones Urine Blood Urine Nitrite Urine Bilirubin Urine Urobilinogen Ur Leukocyte Esterase Syphilis Serology Hepatitis Be Antibody Hepatitis Be Antigen HIV Ag/Ab Combo Qual SARS-CoV-2 (PCR) 03/01/20 03/02/20 03/02/20 21:15 06:53 19:19 WBC RBC Hgb Hct MCV MCH MCHC RDW Plt Count MPV Sickle Cell Screen Sodium Potassium Chloride Carbon Dioxide Anion Gap BUN Creatinine Est GFR (CKD-EPI)AfAm Est GFR (CKD-EPI)NonAf POC Glucometer 169 124 Random Glucose Calcium Total Bilirubin AST ALT Alkaline Phosphatase Total Protein Albumin TSH Thyroxine (T4) Resin T3 Uptake Urine Color Yellow Urine Appearance Clear Urine pH 5.5 Ur Specific [place] 1.020 Urine Protein Negative Urine Glucose (UA) Negative Urine Ketones Negative Urine Blood Negative Urine Nitrite Negative Urine Bilirubin Negative Urine Urobilinogen 0.2 Ur Leukocyte Esterase Negative Syphilis Serology Hepatitis Be Antibody Hepatitis Be Antigen HIV Ag/Ab Combo Qual SARS-CoV-2 (PCR) 03/02/20 03/03/20 03/03/20 21:26 06:35 16:43 WBC RBC Hgb Hct MCV MCH MCHC RDW Plt Count MPV Sickle Cell Screen Sodium Potassium Chloride Carbon Dioxide Anion Gap BUN Creatinine Est GFR (CKD-EPI)AfAm Est GFR (CKD-EPI)NonAf POC Glucometer 173 141 184 Random Glucose Calcium Total Bilirubin AST ALT Alkaline Phosphatase Total Protein Albumin TSH Thyroxine (T4) Resin T3 Uptake Urine Color Urine Appearance Urine pH Ur Specific [place] Urine Protein Urine Glucose (UA) Urine Ketones Urine Blood Urine Nitrite Urine Bilirubin Urine Urobilinogen Ur Leukocyte Esterase Syphilis Serology Hepatitis Be Antibody Hepatitis Be Antigen HIV Ag/Ab Combo Qual SARS-CoV-2 (PCR) 03/04/20 03/04/20 03/05/20 06:33 20:40 06:18 WBC RBC Hgb Hct MCV MCH MCHC RDW Plt Count MPV Sickle Cell Screen Sodium Potassium Chloride Carbon Dioxide Anion Gap BUN Creatinine Est GFR (CKD-EPI)AfAm Est GFR (CKD-EPI)NonAf POC Glucometer 137 121 114 Random Glucose Calcium Total Bilirubin AST ALT Alkaline Phosphatase Total Protein Albumin TSH Thyroxine (T4) Resin T3 Uptake Urine Color Urine Appearance Urine pH Ur Specific [place] Urine Protein Urine Glucose (UA) Urine Ketones Urine Blood Urine Nitrite Urine Bilirubin Urine Urobilinogen Ur Leukocyte Esterase Syphilis Serology Hepatitis Be Antibody Hepatitis Be Antigen HIV Ag/Ab Combo Qual SARS-CoV-2 (PCR) 03/05/20 03/06/20 03/06/20 20:51 06:32 06:50 WBC RBC Hgb Hct MCV MCH MCHC RDW Plt Count MPV Sickle Cell Screen Sodium Potassium Chloride Carbon Dioxide Anion Gap BUN Creatinine Est GFR (CKD-EPI)AfAm Est GFR (CKD-EPI)NonAf POC Glucometer 103 113 Random Glucose Calcium Total Bilirubin AST ALT Alkaline Phosphatase Total Protein Albumin TSH Thyroxine (T4) Resin T3 Uptake Urine Color Urine Appearance Urine pH Ur Specific [place] Urine Protein Urine Glucose (UA) Urine Ketones Urine Blood Urine Nitrite Urine Bilirubin Urine Urobilinogen Ur Leukocyte Esterase Syphilis Serology Hepatitis Be Antibody Hepatitis Be Antigen HIV Ag/Ab Combo Qual Negative SARS-CoV-2 (PCR) - Treatment Discharge Condition: Discharge condition good, Rehabilitated safely, Responded well, Outpatient referral accepted Hospital Course: Pt completed rehab and discharged today. CD aftercare referral accepted to [facility] - Medication Discharge Medications: Ambulatory Orders Metformin HCl [Glucophage] 500 mg PO BID 02/26/20 hydrOXYzine PAMOATE [Vistaril -] 1 cap PO HS 02/26/20 Ciclopirox 6.6 ml TP DAILY 02/27/20 Levothyroxine [Synthroid -] 100 mcg PO DAILY 02/27/20 Omeprazole 20 mg PO DAILY 02/27/20 Terbinafine HCl 250 mg PO DAILY 02/27/20 Bupropion HCl [Wellbutrin Xl -] 300 mg PO DAILY #30 tab.sr.[id number] 03/04/20 - Medication-Assisted Treatment (MAT) Medication-Assisted Treatment (MAT): No - Discharge Instructions Diet, activity, other medical instructions: Diet:NCS/JOYCE Activity: oob ad mabel Other medical instructions:follow up with primary care with your PCP Dr. Mancilla at [facility] as needed. - Diagnosis (1) Cocaine dependence Status: Chronic Qualifiers: Substance use status: uncomplicated Qualified Code(s): F14.20 - Cocaine dependence, uncomplicated (2) Chronic low back pain Status: Chronic Qualifiers: Back pain laterality: unspecified (3) Obesity Status: Chronic Qualifiers: Body mass index: BMI 36.0-36.9 (4) Hypothyroidism Status: Chronic Qualifiers: Hypothyroidism type: unspecified Qualified Code(s): E03.9 - Hypothyroidism, unspecified (5) Diabetes Status: Chronic Qualifiers: Diabetes mellitus type: type 2 (6) GERD (gastroesophageal reflux disease) Status: Chronic Qualifiers: Esophagitis presence: with esophagitis (7) Alcohol dependence Status: Chronic Qualifiers: Substance use status: uncomplicated Qualified Code(s): F10.20 - Alcohol dependence, uncomplicated (8) Cannabis dependence Status: Chronic (9) Nicotine dependence Status: Chronic Qualifiers: Nicotine product type: cigarettes Substance use status: uncomplicated Qualified Code(s): F17.210 - Nicotine dependence, cigarettes, uncomplicated (10) HLD (hyperlipidemia) Status: Chronic Qualifiers: Hyperlipidemia type: unspecified Qualified Code(s): E78.5 - Hyperlipidemia, unspecified - Follow-up Referral Minutes to complete discharge: 30 - AMA Did Patient Leave Against Medical Advice: No Additional Comments: Pt has own medications and will follow up with PCP for further management.
== END 2020-03-06 09:35 | disposition home or self-care (01) | DRG 895 ==
LOC: YASAS 14:11 → Y5N 17:51
PROVIDERS: ADMIT Allergy & Immunology; ATTEND Allergy & Immunology
PROC: HZ42ZZZ Group Counseling for Substance Abuse Treatment, Cognitive-Behavioral (ICD-10-PCS; principal; 2020-02-26)
DX: F10.20 Alcohol dependence, uncomplicated (principal); F14.20 Cocaine dependence, uncomplicated; F19.282 Other psychoactive substance dependence with psychoactive substance-induced sleep disorder; F12.20 Cannabis dependence, uncomplicated; F17.210 Nicotine dependence, cigarettes, uncomplicated; F19.24 Other psychoactive substance dependence with psychoactive substance-induced mood disorder; F31.9 Bipolar disorder, unspecified; F41.9 Anxiety disorder, unspecified; E78.5 Hyperlipidemia, unspecified; E03.9 Hypothyroidism, unspecified; E11.9 Type 2 diabetes mellitus without complications; Z79.84 Long term (current) use of oral hypoglycemic drugs; J45.20 Mild intermittent asthma, uncomplicated; K21.9 Gastro-esophageal reflux disease without esophagitis; L03.012 Cellulitis of left finger; G89.29 Other chronic pain; M54.5 Low back pain; M25.512 Pain in left shoulder; E66.9 Obesity, unspecified; Z68.36 Body mass index [BMI] 36.0-36.9, adult; Z91.410 Personal history of adult physical and sexual abuse; Z91.5 Personal history of self-harm; Z88.0 Allergy status to penicillin
CPT/HCPCS: 36415; 80053; 81003; 82962; 84436; 84443; 84479; 85027; 85660; 86707; 86780; 87350; 87389; 93005; 93010; U0003